=== PATIENT | male | born 1995 | race African-American/Black ===

== ENCOUNTER 2025-09-28 17:50 | Emergency (ER) | payer MEDICAID ==
[~2025-09-28] VITALS: Ht 182.9 cm; Wt 93.0 kg
[2025-09-28] MEDS ORDERED: IBUP-1953 PO (18:29)
[2025-09-28] MEDS: IBUPROFEN 600 MG TABLET PO ONE (18:46)
[2025-09-28 18:57] VITALS: BP 136/92; TEMP 98.3; O2SAT 97
== END 2025-09-28 18:59 | disposition home or self-care (01) ==
LOC: ER 17:53
DX: S43.141A Inferior dislocation of right acromioclavicular joint, initial encounter (principal); V00.131A Fall from skateboard, initial encounter; Y93.89 Activity, other specified; Y92.89 Other specified places as the place of occurrence of the external cause; Y99.8 Other external cause status
CPT/HCPCS: 73030-TC